=== PATIENT | male | born 1985 | race Caucasian/White ===

== ENCOUNTER 2017-07-10 10:54 | Emergency (ER) | payer SELFPAY ==
--- NOTE | 2017-07-10 12:05 | EDM.PDOC ---
ED HPI GENERAL MEDICAL PROBLEM - General Chief Complaint: ENT Problem Stated Complaint: DENTAL PAIN Time Seen by Provider: 07/10/17 11:40 Source of Information: Reports: Patient History Limitations: Reports: No Limitations - History of Present Illness INITIAL COMMENTS - FREE TEXT/NARRATIVE: Patient is a 31-year-old male who presents ED complaining of tooth pain. Patient had a feeling to the #13 tooth that fell out a few days ago. Causing increasing pain to the affected tooth with eating, chewing, drinking, or breathing. Patient has been utilizing rlbz-bps-eqaruxo feeling and also Anbesol with minimal relief. Also take Tylenol and ibuprofen with some relief. Has appointment with the dentist on Saturday. No gumline swelling. No drainage noted. No fever, chills, nausea/vomiting, or any additional complaints. Left Lower Tooth/Teeth Pain Score (Numeric/FACES): 10 - Related Data Allergies Allergy/AdvReac Type Severity Reaction Status Date / Time No Known Allergies Allergy Verified 07/10/17 11:04 Home Meds: Home Meds traMADol [Ultram] 50 mg PO Q6H PRN #5 tab 07/10/17 [Rx] Past Medical History Cardiovascular History: Reports: Heart Murmur Social & Family History - Tobacco Use Smoking Status *Q: Current Every Day Smoker Years of Tobacco use: 7 Packs/Tins Daily: 0.5 - Caffeine Use Caffeine Use: Reports: None - Recreational Drug Use Recreational Drug Use: No ED ROS ENT - Review of Systems Review Of Systems: Unable To Obtain ED EXAM, ENT - Physical Exam Exam: See Below Exam Limited By: No Limitations General Appearance: Alert, WD/WN, No Apparent Distress Ears: Hearing Grossly Normal Nose: Normal Inspection Mouth/Throat: Dental Tenderness (Filling has fallen out of the #13 tooth. Severe dental decay noted. No gumline swelling. No drainage. No signs of abscess. Patient has pulpitis.). No: Dental Abcess, Dental Trauma Head: Atraumatic, Normocephalic Neck: Normal Inspection, Supple Respiratory/Chest: No Respiratory Distress, No Accessory Muscle Use Cardiovascular: Normal Peripheral Pulses, Regular Rate, Rhythm Neurological: Alert, Oriented, CN II-XII Intact, Normal Cognition, No Motor/ Sensory Deficits Psychiatric: Normal Affect, Normal Mood Skin: Warm, Dry, Intact, Normal Color Course - Vital Signs Last Recorded V/S: Last Vital Signs Temp 98.9 F 07/10/17 11:00 Pulse 93 07/10/17 11:00 Resp 16 07/10/17 11:00 BP 123/75 07/10/17 11:00 Pulse Ox 100 07/10/17 11:00 - Re-Assessments/Exams Free Text/Narrative Re-Assessment/Exam: Supraperiosteal dental block for foreign with Marcaine 0.5%. medications. Patient had immediate relief of discomfort. Will discharge patient home with instructions as documented. Departure - Departure Time of Disposition: 12:03 Disposition: Home, Self-Care 01 Condition: Good Clinical Impression: Dental caries, Dental caries extending into dentin - Discharge Information Prescriptions: traMADol [Ultram] 50 mg PO Q6H PRN #5 tab PRN Reason: Pain (Severe 7-10) Referrals: PCP,None [Primary Care Provider] - Forms: ED Department Discharge, ED Return to Work/School Form Additional Instructions: Continue to use [id number] fake filling to decrease exposure to air, hot and cold fluids, and food particles. Continue use and muscle as needed for discomfort along with Tylenol and ibuprofen. Keep appointment with dentist as scheduled for this coming Saturday. Use tramadol 1 tab at night prior to going to bed to help with any pain. Return to the ED if you develop any new or worsening symptoms.
== END 2017-07-10 12:18 | disposition home or self-care (01) ==
LOC: JD.ED 10:54 → MERGE 10:54 → JD.ED 12:18
DX: K02.9 Dental caries, unspecified (principal); F17.210 Nicotine dependence, cigarettes, uncomplicated
CPT/HCPCS: 64400; 99283; 99283-25